=== PATIENT | female | born 1995 | race Caucasian/White ===

== ENCOUNTER 2021-05-06 03:58 | Inpatient (IN) | payer OTHER ==
[2021-05-06] MEDS ORDERED: ELECTROLYTE-148 SOLN 1,000 ML IV SCH (04:10)
[2021-05-06] MEDS ORDERED: OXYTOCIN 20 UNITS in 0.9% NS 20 UNIT/1,000 ML INFUS.BAG IV ONE ×2 (04:15→07:30)
[2021-05-06 04:25] VITALS: BMI 26.5
[2021-05-06 04:42] LABS: BASO % 0.3 % (0-2.0); EOS % 0.8 % (0-4.5); HEMATOCRIT 30.7 % (32.4-45.2); HEMOGLOBIN 10.2 GM/dL (10.7-15.3); LYMPH % 20.2 % (8-40); MCH 25.9 pg (25.7-33.7); MCHC 33.3 g/dl (32.0-36.0); MEAN CELL VOLUME 77.7 fl (80-96); MEAN PLT VOLUME 8.3 fl (7.5-11.1); MONO % 7.6 % (3.8-10.2); NEUT % 71.1 % (42.8-82.8); PLATELET COUNT 348 10^3/uL (134-434); RBC 3.95 M/mm3 (3.60-5.2); RDW 15.7 % (11.6-15.6)
[2021-05-06 04:52] LABS: INR 0.92 (0.83-1.09); PROTHROMBIN TIME (PATIENT) 11.2 SEC (9.7-13.0)
[2021-05-06 04:55] LABS: ACTIVATED PTT 27.6 SECONDS (25.2-36.5)
[2021-05-06 05:00] LABS: CALCIUM 8.7 mg/dL (8.5-10.1)
[2021-05-06 05:01] LABS: BLOOD UREA NITROGEN 8.8 mg/dL (7-18)
[2021-05-06 05:04] LABS: CREATININE 0.5 mg/dL (0.55-1.3)
[2021-05-06] MEDS ORDERED: BENZOCAINE 20% 57 GM BOTTLE TP PRN (05:42)
[2021-05-06] MEDS ORDERED: BENZOCAINE 28 GM HEMORRHOIDAL OINTMENT TP PRN (05:42)
[2021-05-06] MEDS ORDERED: METHYLERGONOVINE MALEATE 0.2 MG/1 ML AMP IM PRN (05:42)
[2021-05-06] MEDS ORDERED: WITCH HAZEL 50% (TUCKS) 40 PAD/JAR PAD TP PRN (05:42)
[2021-05-06] MEDS ORDERED: BISACODYL 10 MG SUPP.RECT RC PRN (05:42)
[2021-05-06] MEDS ORDERED: OXYTOCIN 20 UNITS in 0.9% NS 20 UNIT/1,000 ML INFUS.BAG IV SCH (05:45)
[2021-05-06 06:05] LABS: CORD BASE EXCESS -6.1 mmol/L (0-2); CORD HCO3 20.5 mmHg (20-29); CORD PCO2 44.5 mmHg (30-78); CORD pH 7.282 (7.14-7.44)
[2021-05-06 06:08] LABS: CORD BASE EXCESS -9.4 mmol/L (0-2); CORD HCO3 18.7 mmHg (20-29); CORD PCO2 48.7 mmHg (30-78); CORD pH 7.202 (7.14-7.44)
[2021-05-06] MEDS ORDERED: ACETAMINOPHEN 325 MG TABLET (FP) ONE (07:04)
[2021-05-06] MEDS ORDERED: IBUPROFEN 600 MG TABLET (FP) PO ONE (07:04)
[2021-05-06] MEDS: IBUPROFEN 600 MG TABLET (FP) PO PRN ×2 (07:05→15:31)
[2021-05-06] MEDS: ACETAMINOPHEN 325 MG TABLET (FP) PO PRN ×2 (07:05→15:31)
[2021-05-06] MEDS: FERROUS SO4 325 MG TABLET (FP) PO SCH ×2 (09:00→17:46)
[2021-05-06] MEDS: PRENATAL VITAMINS W/ FOLIC ACID TABLET (FP) PO SCH (09:57)
[2021-05-07] MEDS: IBUPROFEN 600 MG TABLET (FP) PO PRN (06:19)
[2021-05-07] MEDS: ACETAMINOPHEN 325 MG TABLET (FP) PO PRN (06:19)
[2021-05-07 08:36] LABS: BASO % 0.4 % (0-2.0); EOS % 1.1 % (0-4.5); HEMATOCRIT 25.7 % (32.4-45.2); HEMOGLOBIN 8.3 GM/dL (10.7-15.3); LYMPH % 19.8 % (8-40); MCH 25.8 pg (25.7-33.7); MCHC 32.4 g/dl (32.0-36.0); MEAN CELL VOLUME 79.6 fl (80-96); MEAN PLT VOLUME 8.3 fl (7.5-11.1); MONO % 7.8 % (3.8-10.2); NEUT % 70.9 % (42.8-82.8); PLATELET COUNT 272 10^3/uL (134-434); RBC 3.23 M/mm3 (3.60-5.2); RDW 15.7 % (11.6-15.6); WHITE BLOOD COUNT 11.3 K/mm3 (4.0-10.0)
[2021-05-07] MEDS: FERROUS SO4 325 MG TABLET (FP) PO SCH (09:47)
[2021-05-07] MEDS: PRENATAL VITAMINS W/ FOLIC ACID TABLET (FP) PO SCH (09:47)
[2021-05-07 10:12] VITALS: BP 109/70; PULSE 81; TEMP 97.4
[2021-05-07] MEDS ORDERED: SENNOSIDES/DOCUSATE COMBO (SENNA PLUS) TABLET (UD) PO PRN (22:00)
== END 2021-05-07 13:55 | disposition home or self-care (01) | DRG 560 ==
LOC: JDEL 03:58 → JLDR 04:08 → J3W 08:15
PROVIDERS: ADMIT Obstetrics & Gynecology; ATTEND Obstetrics & Gynecology
PROC: 10E0XZZ Delivery of Products of Conception, External Approach (ICD-10-PCS; principal; 2021-05-06)
DX: O99.02 Anemia complicating childbirth (principal); D64.9 Anemia, unspecified; Z3A.38 38 weeks gestation of pregnancy; Z37.0 Single live birth
CPT/HCPCS: 36415; 36600; 59409; 80048; 82803; 85025; 85610; 85730; 86780; 86850; 86900; 86901; C9803; U0003; U0005